=== PATIENT | male | born 1940 | race Caucasian/White ===

== ENCOUNTER 2022-09-13 10:39 | Emergency (ER) | payer MEDICARE ==
[2022-09-13 10:52] VITALS: BP 149/69
[2022-09-13] MEDS ORDERED: DEXAMETHASONE 10 MG/ML VIAL PO STA (11:25)
[2022-09-13] MEDS ORDERED: CHERRY SYRUP 10 ML UDC PO ONE (11:25)
--- NOTE | 2022-09-13 11:31 | ED Physician Documentation ---
PD HPI CHEST PAIN - Stated complaint Stated Complaint: FALL, L HIP PX - Chief complaint Chief Complaint: Trauma Ch/Bk - History obtained from History obtained from: Patient, Family () - History of Present Illness Timing - onset: How many days ago (3) Timing - onset during: Light activity Timing - duration: Days (3) Timing - details: Abrupt onset, Still present Pain level max: 4 Pain level now: 4 Quality: Sharp, Pain Location: Left chest Radiation: No: Jaw, Neck, Back, Abdominal, Left upper extremity, Right upper extremity Improved by: Rest Worsened by: Palpation, Position Associated symptoms: No: Shortness of air, Diaphoresis, Nausea, Vomiting, Feeling faint / dizzy, General Weakness, Palpitations, Cough Similar symptoms before: Has not had sx before Recently seen: Not recently seen - Additional information Additional information: Previously well Chip Goodrich is an 81-year-old male who is on no medications and has no particular past medical history. He was in his vacation home going between 2 doors when he crossed his feet and tipped to the left side landing on his left lower ribs. He had some pain associated with this he has had pain when he tries to sleep on that side and when he rolls over in bed and with certain positions. He is able to breathe without difficulty. He does not have pain bad enough to take medication for it. He is wondering if maybe he has a rib that is poking into something and may be would cause him a lot of trouble. Review of Systems Constitutional: denies: Fever Ears: denies: Ear pain Nose: denies: Congestion Throat: denies: Sore throat Cardiac: reports: Chest pain / pressure. denies: Palpitations, Pedal edema, Calf pain Respiratory: denies: Dyspnea, Cough GI: denies: Abdominal Pain, Nausea, Vomiting, Diarrhea : denies: Dysuria, Frequency PD PAST MEDICAL HISTORY - Present Medications Home Medications: Ambulatory Orders Medication Instructions Recorded Confirmed Levothyroxine [Synthroid] 88 mcg PO QDAC 09/13/22 09/13/22 Simvastatin [Zocor] 40 mg PO DAILY 09/13/22 09/13/22 - Allergies Allergies/Adverse Reactions: Allergies Allergy/AdvReac Type Severity Reaction Status Date / Time No Known Drug Allergies Allergy Verified 09/13/22 10:52 PD ED PE NORMAL - Vitals Vital signs reviewed: Yes (Hypertensive mild) - General General: Alert and oriented X 3, No acute distress, Well developed/nourished - HEENT HEENT: Atraumatic, PERRL, EOMI - Neck Neck: Supple, no meningeal sign, No bony TTP - Cardiac Cardiac: RRR, No murmur - Respiratory Respiratory: No respiratory distress, Clear bilaterally - Abdomen Abdomen: Normal bowel sounds, Soft, Non distended, No organomegaly, Other (Tenderness to palpation of the left lower ribs to a specific rib.) - Back Back: No CVA TTP, No spinal TTP - Derm Derm: Normal color, Warm and dry, No rash - Extremities Extremities: No deformity, No edema - Neuro Neuro: Alert and oriented X 3, 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 No displaced rib fracture is visualized.), EMP read indepedently PD Medical Decision Making - ED course Complexity details: reviewed results, re-evaluated patient, considered differential, d/w patient, d/w family ED course: Previously well 81-year-old male on no medications with a fall onto his left ribs has pain to the left rib cage. I included in the differential the possibility of hemothorax, pneumothorax, rib fracture, pneumonia and chest wall contusion. Ultimately the patient is diagnosed with a chest wall contusion and there is no evidence of pneumonia, hemothorax pneumothorax or rib fracture. He is given a dose of dexamethasone for the inflammatory process and he is comfortable to return home. He does not require narcotic pain reliever. Departure - Departure Disposition: 01 Home, Self Care Clinical Impression: Chest wall contusion Qualifiers: Encounter type: initial encounter Laterality: left Qualified Code(s): S20.212A - Contusion of left front wall of thorax, initial encounter Condition: Stable Instructions: ED Contusion Vs Minor Fx Rib Follow-Up: [facility]. [Other] Comments: Chip, today it looks like you have contused your rib cage and this usually causes a problem with some pain with position and palpation for about 3 to 4 weeks. It does not look like there is any fracture on the plain film. There can be a hairline fracture and this should behave similarly. If you need to take some ibuprofen make certain you take it with food as it irritates the lining of everybody's stomach. Ibuprofen or Aleve would be the main medications for treatment of this which is an inflammatory condition. We have given you a single dose of dexamethasone which should help for about 2 days. Discharge Date/Time: 09/13/22 11:44
--- NOTE | 2022-09-13 11:32 | XRAY Report ---
PROCEDURE: Ribs w/PA Chest LT INDICATIONS: trauma TECHNIQUE: 2 views of the left ribs were acquired, along with a single view chest. COMPARISON: None FINDINGS: Surgical changes and devices: None. Bones and chest wall: No fractures or dislocations. No suspicious bony lesions. Overlying soft tis sues appear unremarkable. Lungs and pleura: No pleural effusions or pneumothorax. Lungs appear clear. Mediastinum: Mediastinal contours appear normal. Heart size is normal. IMPRESSION: No acute cardiopulmonary findings. No displaced rib fractures visualized. Reviewed by: Christin Gage MD on 09/13/2022 11:31 AM [facility] Approved by: Christin Gage MD on 09/13/2022 11:31 AM [facility] Station ID: [id number]
== END 2022-09-13 11:44 | disposition home or self-care (01) ==
LOC: ED 10:39
DX: S20.212A Contusion of left front wall of thorax, initial encounter (principal); W01.0XXA Fall on same level from slipping, tripping and stumbling without subsequent striking against object, initial encounter; Y92.009 Unspecified place in unspecified non-institutional (private) residence as the place of occurrence of the external cause
CPT/HCPCS: 71101; 99283; A9270